=== PATIENT | female | born 1990 | race Caucasian/White ===

== ENCOUNTER → 2019-09-26 | Outpatient (CLI) | payer OTHER ==
--- NOTE | 2019-09-27 12:09 | Pulmonary Function Test ---
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
== END ==
LOC: RT 15:58
PROVIDERS: ATTEND Nurse Practitioner Family
DX: R06.02 Shortness of breath (principal)
CPT/HCPCS: 94010